=== PATIENT | male | born 1960 | race Caucasian/White ===

== ENCOUNTER 2017-11-21 12:29 | Inpatient (IN) | payer OTHER ==
[~2017-11-21] VITALS: Ht 180.3 cm; Wt 99.3 kg
[2017-11-21] VITALS (414 sets, daily range): BP systolic 92–112; BP diastolic 62–81; PULSE 83–94; TEMP 97–97.8; O2SAT 89–100
[2017-11-21] MEDS ORDERED: ZYLOPRIM 300MG300 MG PO (14:19)
[2017-11-21] MEDS ORDERED: PRILOSEC 20MG20 MG PO (14:19)
[2017-11-21] MEDS ORDERED: LOPRESSOR 550 MG/TAB PO (14:20)
[2017-11-21 20:08] LABS: HEMATOCRIT 24.1 % (42.0-52.0); HEMOGLOBIN 8.2 g/dl (13.5-18.0)
[2017-11-22] VITALS (730 sets, daily range): BP systolic 116–138; BP diastolic 77–89; PULSE 81–93; TEMP 97–98.2; O2SAT 87–100
[2017-11-22 02:27] LABS: HEMATOCRIT 23.6 % (42.0-52.0)
[2017-11-22 05:41] LABS: BASO % 0.4 % (0.0-2.0); EOS # 0.1 (0.0-0.7); EOS % 2.6 % (0-4.0); GRAN # 2.6 (1.4-6.5); GRAN % 52.8 % (42.2-75.2); LYMPH # 1.7 (1.2-3.4); LYMPH % 34.1 % (20.0-51.0); MEAN CELL VOLUME 100 fl (80.0-100.0); MEAN CORPUSCULAR HGB CONC 34 g/dl (33.0-37.0); MEAN PLATELET VOLUME 10.4 fl (7.4-10.4); MONO # 0.4 (0.1-0.6); MONO % 8.9 % (1.7-9.3); PLATELET COUNT 81 K/mm3 (130-400); RED BLOOD COUNT 2.31 M/mm3 (4.20-5.60); REDCELL DISTRIBUTION WIDTH-CV 16.7 % (11.5-14.5)
[2017-11-22 05:44] LABS: HEMATOCRIT 23.1 % (42.0-52.0); HEMOGLOBIN 7.8 g/dl (13.5-18.0); MEAN CORPUSCULAR HEMOGLOBIN 34 pg (27.0-31.0)
[2017-11-22 05:49] LABS: CALCIUM 7.9 mg/dL (8.4-10.2); CREATININE, serum 0.86 mg/dL (0.66-1.25); MAGNESIUM 1.6 mg/dL (1.6-2.3); POTASSIUM 3.7 mmol/L (3.4-5.0)
[2017-11-22 08:21] LABS: HEMATOCRIT 24.1 % (42.0-52.0); HEMOGLOBIN 8.1 g/dl (13.5-18.0)
[2017-11-22 14:29] LABS: HEMATOCRIT 23.9 % (42.0-52.0)
[2017-11-22 20:32] LABS: HEMATOCRIT 26.1 % (42.0-52.0); HEMOGLOBIN 8.5 g/dl (13.5-18.0)
[2017-11-23] VITALS (697 sets, daily range): BP systolic 103–146; BP diastolic 81–93; PULSE 68–89; TEMP 97–98.1; O2SAT 88–100
[2017-11-23 05:36] LABS: BASO % 0.8 % (0.0-2.0); EOS # 0.2 (0.0-0.7); EOS % 4.3 % (0-4.0); GRAN # 2.9 (1.4-6.5); GRAN % 55.4 % (42.2-75.2); LYMPH # 1.6 (1.2-3.4); LYMPH % 30.4 % (20.0-51.0); MEAN CELL VOLUME 103 fl (80.0-100.0); MEAN CORPUSCULAR HGB CONC 32 g/dl (33.0-37.0); MEAN PLATELET VOLUME 10.4 fl (7.4-10.4); MONO # 0.4 (0.1-0.6); MONO % 8.3 % (1.7-9.3); PLATELET COUNT 99 K/mm3 (130-400); RED BLOOD COUNT 2.35 M/mm3 (4.20-5.60); REDCELL DISTRIBUTION WIDTH-CV 16.7 % (11.5-14.5)
[2017-11-23 05:38] LABS: HEMATOCRIT 24.1 % (42.0-52.0); HEMOGLOBIN 7.8 g/dl (13.5-18.0); MEAN CORPUSCULAR HEMOGLOBIN 33 pg (27.0-31.0)
[2017-11-23 05:48] LABS: CREATININE, serum 0.88 mg/dL (0.66-1.25); MAGNESIUM 2.3 mg/dL (1.6-2.3); PHOSPHOROUS 3.9 mg/dL (2.5-4.5); POTASSIUM 3.9 mmol/L (3.4-5.0)
[2017-11-23] MEDS ORDERED: FOLIC ACID 11 MG/TA1 PO (16:02)
[2017-11-23] MEDS ORDERED: MULTI VITAMINS1 TAB PO (16:03)
[2017-11-23] MEDS ORDERED: PROTONIX 40MG T40 MG PO (16:03)
[2017-11-23] MEDS ORDERED: THIAMINE 1100 MG/TAB PO (16:03)
== END 2017-11-23 17:43 | disposition home or self-care (01) | DRG 378 ==
LOC: ICU 12:29
PROVIDERS: Internal Medicine; Internal Medicine Gastroenterology; Nurse Practitioner Family
PROC: 0W3P8ZZ Control Bleeding in Gastrointestinal Tract, Via Natural or Artificial Opening Endoscopic (ICD-10-PCS; 2017-11-21)
PROC: 0DB68ZX Excision of Stomach, Via Natural or Artificial Opening Endoscopic, Diagnostic (ICD-10-PCS; principal; 2017-11-21 15:00)
DX: K26.4 Chronic or unspecified duodenal ulcer with hemorrhage (principal); D62 Acute posthemorrhagic anemia; I10 Essential (primary) hypertension; G89.29 Other chronic pain; M54.9 Dorsalgia, unspecified; F10.10 Alcohol abuse, uncomplicated; K25.7 Chronic gastric ulcer without hemorrhage or perforation; D69.6 Thrombocytopenia, unspecified
CPT/HCPCS: 99223-AI; 99231-AI; 99239; C9113; J2250; J2704; J3475; J7050; J7120; P9016

== ENCOUNTER → 2017-11-21 | Outpatient (REF) ==
[~2017-11-21] MED LIST: FOLIC ACID 11 MG/TA1 PO; LOPRESSOR 550 MG/TAB PO; MULTI VITAMINS1 TAB PO; PRILOSEC 20MG20 MG PO; PROTONIX 40MG T40 MG PO; THIAMINE 1100 MG/TAB PO; ZYLOPRIM 300MG300 MG PO
== END ==
LOC: ZLAB.WCH 18:12
DX: Z01.89 Encounter for other specified special examinations (principal)

== ENCOUNTER 2017-12-22 06:58 | Day surgery (SDC) | payer OTHER ==
[~2017-12-22] VITALS: Ht 180.3 cm; Wt 100.5 kg
[2017-12-22 07:30] VITALS: BP 132/105; PULSE 92; TEMP 98
[2017-12-22] MEDS ORDERED: PROTONIX 40MG T40 MG PO (07:38)
[2017-12-22] MEDS ORDERED: FOLIC ACID 11 MG/TA1 PO (07:38)
[2017-12-22] MEDS ORDERED: MULTI VITAMINS1 TAB PO (07:39)
[2017-12-22] MEDS ORDERED: TYLENOL 500MG500 MG PO (07:40)
[2017-12-22] MEDS ORDERED: NATURE'S BLEND100 M2 PO (07:42)
[2017-12-22 08:55] VITALS: BP 126/92; PULSE 83; TEMP 97.6
[2017-12-22 09:10] VITALS: BP 116/94; PULSE 91
[2017-12-22 09:25] VITALS: BP 115/81; PULSE 85
== END 2017-12-22 09:45 | disposition home or self-care (01) ==
LOC: SDCO 06:58
DX: D12.0 Benign neoplasm of cecum (principal); D12.3 Benign neoplasm of transverse colon; K57.30 Diverticulosis of large intestine without perforation or abscess without bleeding; D50.0 Iron deficiency anemia secondary to blood loss (chronic); R19.5 Other fecal abnormalities; I10 Essential (primary) hypertension; K21.9 Gastro-esophageal reflux disease without esophagitis; E78.00 Pure hypercholesterolemia, unspecified
CPT/HCPCS: OP; J2250; J3010; J7030

== ENCOUNTER → 2018-12-28 | Outpatient (REF) ==
[~2018-12-28] MED LIST changes: +NATURE'S BLEND100 M2 PO; +TYLENOL 500MG500 MG PO
[2018-12-28 18:53] LABS: THYROID STIMULATING HORMONE 1.12 uIU/mL (0.465-4.680)
[2018-12-28 19:17] LABS: PSA-TOTAL 1.58 ng/mL (0-4)
== END ==
LOC: ZLAB.WCH 18:01
PROVIDERS: Internal Medicine
DX: Z01.89 Encounter for other specified special examinations (principal)
CPT/HCPCS: G0103

== ENCOUNTER → 2020-07-22 | Outpatient (CLI) | payer OTHER | LOC: COL.PUL | DX: R06.02 Shortness of breath (principal) ==

== ENCOUNTER → 2020-12-23 | Outpatient (CLI) | payer OTHER | LOC: COL.PUL 10-07 13:00 | DX: R06.02 Shortness of breath (principal) | CPT/HCPCS: J7674 ==

== ENCOUNTER → 2021-01-20 | Outpatient (CLI) | payer OTHER | LOC: ZLAB.WCH 17:38 | DX: Z01.89 Encounter for other specified special examinations (principal) ==